=== PATIENT | female | born 2000 | race African-American/Black ===

== ENCOUNTER 2022-07-05 09:55 | Day surgery (SDC) | payer BC ==
[2022-07-02 09:02] VITALS: BMI 29.2
[2022-07-05] MEDS ORDERED: Bupivacaine PF 0.5% 30 ML VIAL ONE (12:01)
[2022-07-05] MEDS ORDERED: Dexmedetomidine 200 MCG/2 ML VIAL ONE (12:01)
[2022-07-05] MEDS ORDERED: Neomycin-Polymyxin 1 ML AMP ONE (12:02)
[2022-07-05] MEDS ORDERED: CEFAZOLIN 2 GM VIAL ONE (12:15)
[2022-07-05] MEDS ORDERED: Fentanyl 100 MCG/2 ML VIAL ONE (12:15)
[2022-07-05] MEDS ORDERED: PROPOFOL 20 ML ONE (12:15)
[2022-07-05] MEDS ORDERED: Famotidine/PF 20 mg/2ml Vial ONE (12:19)
[2022-07-05] MEDS ORDERED: Dexamethasone 4 mg/ml Vial ONE (12:35)
[2022-07-05] MEDS ORDERED: Metoclopramide HCl 10 MG/2 ML VIAL ONE (12:36)
[2022-07-05] MEDS ORDERED: Ondansetron PF 4 MG/2 ML Vial ONE (12:36)
[2022-07-05] MEDS ORDERED: Ketorolac Tromethamine 30 MG/ML VIAL ONE (12:55)
== END 2022-07-05 14:24 | disposition home or self-care (01) ==
LOC: CSHSDC 09:55
PROVIDERS: ATTEND Podiatrist
PROC: 0J8Q0ZZ Division of Right Foot Subcutaneous Tissue and Fascia, Open Approach (ICD-10-PCS; principal; 2022-07-05)
DX: M72.2 Plantar fascial fibromatosis (principal); F41.0 Panic disorder [episodic paroxysmal anxiety]; Z79.899 Other long term (current) drug therapy; Z98.890 Other specified postprocedural states
CPT/HCPCS: J1100; J1885; J2405; J2704; J2765; J3010; S0020; S0028